=== PATIENT | female | born 1995 | race African-American/Black ===

== ENCOUNTER 2024-05-31 00:11 | Emergency (ER) | payer OTHER ==
[~2024-05-31] VITALS: Ht 175.3 cm; Wt 112.5 kg
[2024-05-31 00:21] VITALS: PULSE 68; RESP 18; TEMP 98.6; O2SAT 100
== END 2024-05-31 01:32 | disposition home or self-care (01) ==
LOC: ER 00:56
DX: K04.7 Periapical abscess without sinus (principal)
CPT/HCPCS: 99282